=== PATIENT | female | born 1945 | race Caucasian/White ===

== ENCOUNTER 2020-02-16 14:54 | Emergency (ER) | payer BC, MEDICAID ==
[~2020-02-16] VITALS: Ht 162.6 cm; Wt 100.0 kg
[~2020-02-16 14:54] MED LIST: FENO134C PO; INSU300I SQ; LOSA1TAB15 PO; METF-436 PO; NORCO10T PO; ROSU10TA2 PO
[2020-02-16 16:19] LABS: BASOPHILS % (AUTO) 0.4 % (0-1); EOSINOPHILS % (AUTO) 0 % (0-6); HEMOGLOBIN 13.4 g/dl (12.0-16.0); LYMPHOCYTES # (AUTO) 0.9 X10'3 (1.1-4.8); LYMPHOCYTES % (AUTO) 27.6 % (21-51); MEAN CORPUSCULAR HEMOGLOBIN 30.4 PG (27.0-31.0); MEAN CORPUSCULAR HGB CONC 33.5 g/dL (33.0-36.5); MEAN CORPUSCULAR VOLUME 90.8 FL (78-98); MEAN PLATELET VOLUME 8.1 FL (7.4-10.4); MONOCYTES # (AUTO) 0.3 X10'3 (0-0.9); MONOCYTES % (AUTO) 9.6 % (2-12); NEUTROPHILS % (AUTO) 62.4 % (42-75); PLATELET COUNT 170 X10'3 (140-440); RED BLOOD COUNT 4.41 X10'6 (4.20-5.60); RED CELL DISTRIBUTION WIDTH 13.6 % (11.5-14.5); WHITE BLOOD COUNT 3.2 X10'3 (4.5-11.0)
[2020-02-16 16:33] LABS: CLARITY,URINE CLOUDY (Clear); COLOR,URINE YELLOW (Yellow); GLUCOSE, URINE >=1000 mg/dl (Neg); KETONES,URINE TRACE mg/dl (Neg); LEUKOCYTE ESTERASE ,URINE SMALL (Neg); NITRITES, URINE POSITIVE (Neg); OCCULT BLOOD,URINE LARGE (Neg); PH,URINE 5.5 (4.8-8.0); PROTEIN,URINE 100 mg/dl (Neg)
[2020-02-16 16:39] LABS: UA COLLECTION TYPE URINAL
[2020-02-16] MEDS ORDERED: CefTRIAXone/D5W-Rocephin 1gm 50 ML IV ONE (16:40)
[2020-02-16] MEDS ORDERED: azithromycin/NS 500mg/250ml 250 ML IV ONE (16:40)
[2020-02-16 16:41] LABS: ALANINE AMINOTRANSFERASE 22 U/L (12-78); ALBUMIN 3.1 G/DL (3.4-5.0); ALBUMIN/GLOBULIN RATIO 0.7 (1.1-1.5); ALKALINE PHOSPHATASE 81 IU/L (46-116); ANION GAP 8 (8-16); ASPARTATE AMINO TRANSFERASE 35 U/L (10-37); BILIRUBIN,TOTAL 0.5 MG/DL (0.1-1.0); BLOOD UREA NITROGEN 30 MG/DL (7-18); BUN/CREATININE RATIO 21.1 (6.6-38.0); C-REACTIVE PROTEIN 3.31 MG/DL (0.0-0.5); CALCIUM 8.2 MG/DL (8.5-10.1); CHLORIDE 102 MMOL/L (99-107); CREATININE 1.42 MG/DL (0.40-0.90); GLUCOSE 157 MG/DL (70-104); LACTATE DEHYDROGENASE 228 U/L (81-234); MAGNESIUM 2.2 MG/DL (1.5-2.4); POTASSIUM 3.8 MMOL/L (3.5-5.1); SODIUM 137 MMOL/L (135-145); TOTAL CARBON DIOXIDE 26.7 MMOL/L (24-32); TOTAL PROTEIN 7.7 G/DL (6.4-8.2); eGFR 36 ML/MIN
[2020-02-16 16:48] LABS: BACTERIA,URINE 4+ /HPF (Neg); MUCUS STRANDS FEW /LPF (Neg); RBC,URINE 20-50 /HPF (0-2); SQUAMOUS EPITHELIAL CELL,UR MANY /LPF (FEW); WBC,URINE 50-100 /HPF (0-4)
[2020-02-16] MEDS ORDERED: normal saline 1000ml 1,000 ML IV ONE (17:10)
[2020-02-16] MEDS ORDERED: AZIT-63 PO (17:23)
[2020-02-16] MEDS ORDERED: CEPH250T PO (17:23)
[2020-02-16 20:02] VITALS: BP 143/78
== END 2020-02-16 20:27 | disposition home or self-care (01) ==
LOC: ER 14:55
DX: U07.1 COVID-19 (principal); J12.89 Other viral pneumonia; N39.0 Urinary tract infection, site not specified; E78.00 Pure hypercholesterolemia, unspecified; I10 Essential (primary) hypertension; J44.9 Chronic obstructive pulmonary disease, unspecified; G47.30 Sleep apnea, unspecified; E11.9 Type 2 diabetes mellitus without complications; F32.9 Major depressive disorder, single episode, unspecified; K21.9 Gastro-esophageal reflux disease without esophagitis; Z87.448 Personal history of other diseases of urinary system; Z88.8 Allergy status to other drugs, medicaments and biological substances; Z56.0 Unemployment, unspecified
CPT/HCPCS: 36415; 71045; 80053; 81001; 83605; 83615; 83735; 84145; 85025; 86140; 87040; 87081; 87635; 87880; 93005; 96365; 96367; 99285; J0456; J0696; J7030

== ENCOUNTER 2020-05-05 17:12 | Emergency (ER) | payer BC, MEDICAID ==
[~2020-05-05] VITALS: Ht 162.6 cm; Wt 97.3 kg
--- NOTE | 2020-05-05 17:16 | NUR ---
Pt's son Javier is her ride home. His number is [phone].
[2020-05-05 18:17] LABS: BASOPHILS # (AUTO) 0.1 X10'3 (0-0.2); EOSINOPHILS # (AUTO) 0.3 X10'3 (0-0.9); EOSINOPHILS % (AUTO) 4.9 % (0-6); HEMATOCRIT 37.5 % (35.0-45.0); HEMOGLOBIN 12.1 g/dl (12.0-16.0); LYMPHOCYTES # (AUTO) 2.4 X10'3 (1.1-4.8); LYMPHOCYTES % (AUTO) 39.5 % (21-51); MEAN CORPUSCULAR HEMOGLOBIN 29.6 PG (27.0-31.0); MEAN CORPUSCULAR HGB CONC 32.3 g/dL (33.0-36.5); MEAN CORPUSCULAR VOLUME 91.5 FL (78-98); MEAN PLATELET VOLUME 7.5 FL (7.4-10.4); MONOCYTES # (AUTO) 0.4 X10'3 (0-0.9); MONOCYTES % (AUTO) 7.3 % (2-12); NEUTROPHILS # (AUTO) 2.9 X10'3 (1.8-7.7); NEUTROPHILS % (AUTO) 47.3 % (42-75); PLATELET COUNT 257 X10'3 (140-440); RED CELL DISTRIBUTION WIDTH 16.4 % (11.5-14.5); WHITE BLOOD COUNT 6.1 X10'3 (4.5-11.0)
[2020-05-05 18:22] LABS: D-DIMER 1.25 MG/L FEU (0-0.50)
[2020-05-05 18:47] VITALS: BP 164/90
[2020-05-05 18:47] LABS: ALANINE AMINOTRANSFERASE 11 U/L (12-78); ALBUMIN 2.8 G/DL (3.4-5.0); ALBUMIN/GLOBULIN RATIO 0.7 (1.1-1.5); ALKALINE PHOSPHATASE 65 IU/L (46-116); ANION GAP 7 (8-16); ASPARTATE AMINO TRANSFERASE 17 U/L (10-37); BILIRUBIN,TOTAL 0.3 MG/DL (0.1-1.0); BLOOD UREA NITROGEN 14 MG/DL (7-18); CALCIUM 8.7 MG/DL (8.5-10.1); CHLORIDE 110 MMOL/L (99-107); GLUCOSE 126 MG/DL (70-104); POTASSIUM 3.7 MMOL/L (3.5-5.1); SODIUM 143 MMOL/L (135-145); TOTAL CARBON DIOXIDE 25.9 MMOL/L (24-32); TOTAL PROTEIN 6.7 G/DL (6.4-8.2); eGFR 54 ML/MIN
[2020-05-05] MEDS ORDERED: POTA10TA19 PO (19:06)
[2020-05-05] MEDS ORDERED: FURO-150 PO (19:06)
[2020-05-05] MEDS ORDERED: CEPH250T PO (19:06)
== END 2020-05-05 19:30 | disposition home or self-care (01) ==
LOC: ER 17:13
DX: L03.116 Cellulitis of left lower limb (principal); L03.115 Cellulitis of right lower limb; R60.0 Localized edema; R06.02 Shortness of breath; E78.00 Pure hypercholesterolemia, unspecified; I10 Essential (primary) hypertension; J44.9 Chronic obstructive pulmonary disease, unspecified; K21.9 Gastro-esophageal reflux disease without esophagitis; E11.9 Type 2 diabetes mellitus without complications; M19.90 Unspecified osteoarthritis, unspecified site; F32.9 Major depressive disorder, single episode, unspecified; Z87.01 Personal history of pneumonia (recurrent); Z87.442 Personal history of urinary calculi; Z87.440 Personal history of urinary (tract) infections; Z90.710 Acquired absence of both cervix and uterus; Z98.890 Other specified postprocedural states; Z60.2 Problems related to living alone; Z56.0 Unemployment, unspecified; Z88.8 Allergy status to other drugs, medicaments and biological substances; Z79.2 Long term (current) use of antibiotics; Z79.899 Other long term (current) drug therapy
CPT/HCPCS: 36415; 71045; 80053; 83880; 84484; 85025; 85379; 93005; 93970; 99285

== ENCOUNTER 2021-08-13 10:38 | Emergency (ER) | payer BC, MEDICAID ==
[~2021-08-13] VITALS: Ht 162.6 cm; Wt 98.2 kg
[~2021-08-13 10:38] MED LIST changes: -FENO134C PO; +FENO134C21 PO; +FURO-150 PO
[2021-08-13 11:07] VITALS: BP 144/97
[2021-08-13 13:22] LABS: COLOR,URINE YELLOW (Yellow); GLUCOSE, URINE NEGATIVE (Neg); KETONES,URINE NEGATIVE (Neg); LEUKOCYTE ESTERASE ,URINE TRACE (Neg); NITRITES, URINE POSITIVE (Neg); OCCULT BLOOD,URINE LARGE (Neg); PH,URINE 5.5 (4.8-8.0); PROTEIN,URINE 30 mg/dl (Neg); UROBILINOGEN,URINE 0.2 E.U/dL (0.2-1.0)
[2021-08-13 13:23] LABS: CLARITY,URINE CLOUDY (Clear); UA COLLECTION TYPE STRAIGHT CATH
[2021-08-13 13:28] LABS: BACTERIA,URINE 4+ /HPF (Neg); MUCUS STRANDS NONE SEEN /LPF (Neg); SQUAMOUS EPITHELIAL CELL,UR MODERATE /LPF (FEW); WBC CLUMPS,URINE MODERATE /HPF (NEGATIVE); WBC,URINE 30-50 /HPF (0-4)
[2021-08-13] MEDS ORDERED: CEPH250T PO (13:36)
== END 2021-08-13 13:51 | disposition home or self-care (01) ==
LOC: ER 10:39
DX: N39.0 Urinary tract infection, site not specified (principal); R10.30 Lower abdominal pain, unspecified; E78.00 Pure hypercholesterolemia, unspecified; I10 Essential (primary) hypertension; J44.9 Chronic obstructive pulmonary disease, unspecified; K21.9 Gastro-esophageal reflux disease without esophagitis; E11.9 Type 2 diabetes mellitus without complications; M19.90 Unspecified osteoarthritis, unspecified site; F32.A Depression, unspecified; Z87.01 Personal history of pneumonia (recurrent); Z87.442 Personal history of urinary calculi; Z87.440 Personal history of urinary (tract) infections; Z90.710 Acquired absence of both cervix and uterus; Z98.890 Other specified postprocedural states; Z60.2 Problems related to living alone; Z56.0 Unemployment, unspecified; Z88.8 Allergy status to other drugs, medicaments and biological substances; Z79.2 Long term (current) use of antibiotics; Z79.899 Other long term (current) drug therapy
CPT/HCPCS: 81001; 87077; 87088; 87186; 99284

== ENCOUNTER 2021-12-08 18:09 | Inpatient (IN) | payer BC, MEDICAID ==
[~2021-12-08] VITALS: Ht 162.6 cm; Wt 105.0 kg
[2021-12-08 19:54] LABS: BASOPHILS # (AUTO) 0.1 X10'3 (0-0.2); BASOPHILS % (AUTO) 0.7 % (0-1); EOSINOPHILS # (AUTO) 0.2 X10'3 (0-0.9); HEMATOCRIT 39.8 % (35.0-45.0); HEMOGLOBIN 13.3 g/dl (12.0-16.0); LYMPHOCYTES # (AUTO) 1.8 X10'3 (1.1-4.8); MEAN CORPUSCULAR HEMOGLOBIN 30.2 PG (27.0-31.0); MEAN CORPUSCULAR HGB CONC 33.3 g/dL (33.0-36.5); MEAN CORPUSCULAR VOLUME 90.7 FL (78-98); MEAN PLATELET VOLUME 7.8 FL (7.4-10.4); MONOCYTES # (AUTO) 0.3 X10'3 (0-0.9); MONOCYTES % (AUTO) 4.6 % (2-12); NEUTROPHILS # (AUTO) 5.2 X10'3 (1.8-7.7); NEUTROPHILS % (AUTO) 68.7 % (42-75); PLATELET COUNT 243 X10'3 (140-440); RED BLOOD COUNT 4.38 X10'6 (4.20-5.60); RED CELL DISTRIBUTION WIDTH 13.5 % (11.5-14.5); WHITE BLOOD COUNT 7.5 X10'3 (4.5-11.0)
[2021-12-08 20:05] LABS: ALANINE AMINOTRANSFERASE 14 U/L (12-78); ALBUMIN 3.3 G/DL (3.4-5.0); ALBUMIN/GLOBULIN RATIO 0.8 (1.1-1.5); ALKALINE PHOSPHATASE 81 IU/L (46-116); ANION GAP 11 (8-16); ASPARTATE AMINO TRANSFERASE 10 U/L (10-37); BILIRUBIN,TOTAL 0.2 MG/DL (0.1-1.0); BLOOD UREA NITROGEN 22 MG/DL (7-18); BUN/CREATININE RATIO 12.6 (6.6-38.0); CHLORIDE 106 MMOL/L (99-107); CREATININE 1.75 MG/DL (0.40-0.90); GLUCOSE 166 MG/DL (70-104); POTASSIUM 3.8 MMOL/L (3.5-5.1); SODIUM 144 MMOL/L (135-145); TOTAL CARBON DIOXIDE 27.1 MMOL/L (24-32); TOTAL PROTEIN 7.4 G/DL (6.4-8.2); eGFR 28 ML/MIN
[2021-12-08] MEDS ORDERED: normal saline 1000ML IV soln IVB ONE (20:20)
[2021-12-08] MEDS ORDERED: ondansetron/PF 4mg/2ml inj IV ONE (20:20)
[2021-12-08 21:27] LABS: CLARITY,URINE CLOUDY (Clear); COLOR,URINE YELLOW (Yellow); GLUCOSE, URINE NEGATIVE (Neg); KETONES,URINE NEGATIVE (Neg); LEUKOCYTE ESTERASE ,URINE SMALL (Neg); NITRITES, URINE POSITIVE (Neg); OCCULT BLOOD,URINE SMALL (Neg); PROTEIN,URINE 30 mg/dl (Neg); UROBILINOGEN,URINE 0.2 E.U/dL (0.2-1.0)
[2021-12-08 21:29] LABS: UA COLLECTION TYPE STRAIGHT CATH
[2021-12-08 21:34] LABS: BACTERIA,URINE 4+ /HPF (Neg); SQUAMOUS EPITHELIAL CELL,UR FEW /LPF (FEW); WBC,URINE 30-50 /HPF (0-4)
[2021-12-08 21:35] LABS: WBC CLUMPS,URINE MODERATE /HPF (NEGATIVE)
[2021-12-08] MEDS ORDERED: HYDROcodone/acetaminophen 10/325mg tab PO PRN (22:05)
[2021-12-08] MEDS ORDERED: acetaminophen 325mg tablet PO PRN (22:05)
[2021-12-08] MEDS ORDERED: magnesium hydroxide 30ml (MOM) UD suspension PO PRN (22:05)
[2021-12-08] MEDS ORDERED: ondansetron/PF 4mg/2ml inj IV PRN (22:05)
[2021-12-08] MEDS ORDERED: magnesium 4gm in 100ml NS 100 ML IV PRN (22:05)
[2021-12-08] MEDS ORDERED: magnesium Cl slow-release 64mg tablet PO PRN (22:05)
[2021-12-08] MEDS ORDERED: magnesium 2GM in 50ml NS 50 ML IV PRN (22:05)
[2021-12-08] MEDS ORDERED: POTASSIUM BICARB 20meq eff tab 20 MEQ TABLET.EFF PO PRN ×2 (22:05)
[2021-12-08] MEDS ORDERED: potassium CL 10mEq/100ml bag 100 ML IV PRN (22:05)
[2021-12-08] MEDS ORDERED: mag hydrox/Alum hydrox/simeth 30ml oral suspension PO PRN (22:05)
[2021-12-08 22:58] LABS: MAGNESIUM 2.1 MG/DL (1.5-2.4); POTASSIUM 3.7 MMOL/L (3.5-5.1)
[2021-12-08] MEDS: ciprofloxacin lact 400MG/200ML 200 ML IV SCH (23:09)
[2021-12-08] MEDS: dextrose 5%-1/2 normal saline 1,000 ML IV SCH (23:09)
--- NOTE | 2021-12-08 23:16 | NUR ---
Alexa Gage (caregiver) [phone]
--- NOTE | 2021-12-08 23:30 | NUR ---
Patient in room ORTHO 4012. I have received report from MERY Suarez and had the opportunity to ask questions and assume patient care.
[2021-12-09 00:10] VITALS: BP 211/88
--- NOTE | 2021-12-09 00:10 | NUR ---
pt arrived to floor on [facility]. ambulated from [facility] in hallway to B bed in room. using bedside commode. settled into bed. routines explained. skin check performed by 2 RN. call light in reach. pt resting and comfortable.
[2021-12-09] MEDS ORDERED: insulin Lispro (HumaLOG) vial - multi-dose SQ SCH (00:30)
[2021-12-09] MEDS ORDERED: dextrose 50%-water 50ml dispensing syringe IV PRN ×2 (00:30)
[2021-12-09] MEDS ORDERED: DEXTROSE 15 GM of carb/4 tabs (each vial/BOTTLE has 4 tablets) PO PRN ×2 (00:30)
[2021-12-09] MEDS ORDERED: glucagon, human recombinant 1mg kit SUBCUT PRN (00:30)
[2021-12-09] MEDS ORDERED: MESSAGE TO PHARMACY PO ONE (00:30)
[2021-12-09 02:00] VITALS: BP 159/77
[2021-12-09] MEDS: HYDROcodone/acetaminophen 5mg/325mg tablet PO PRN ×3 (03:18→22:08)
[2021-12-09 06:00] VITALS: BP 128/67
[2021-12-09 06:11] LABS: BASOPHILS # (AUTO) 0.1 X10'3 (0-0.2); BASOPHILS % (AUTO) 0.7 % (0-1); EOSINOPHILS # (AUTO) 0.2 X10'3 (0-0.9); EOSINOPHILS % (AUTO) 2.8 % (0-6); HEMATOCRIT 36.7 % (35.0-45.0); HEMOGLOBIN 12.3 g/dl (12.0-16.0); LYMPHOCYTES # (AUTO) 2.4 X10'3 (1.1-4.8); LYMPHOCYTES % (AUTO) 31.9 % (21-51); MEAN CORPUSCULAR HEMOGLOBIN 30.7 PG (27.0-31.0); MEAN CORPUSCULAR HGB CONC 33.6 g/dL (33.0-36.5); MEAN CORPUSCULAR VOLUME 91.6 FL (78-98); MEAN PLATELET VOLUME 7.4 FL (7.4-10.4); MONOCYTES # (AUTO) 0.5 X10'3 (0-0.9); MONOCYTES % (AUTO) 6.6 % (2-12); NEUTROPHILS # (AUTO) 4.3 X10'3 (1.8-7.7); PLATELET COUNT 209 X10'3 (140-440); RED BLOOD COUNT 4.01 X10'6 (4.20-5.60); RED CELL DISTRIBUTION WIDTH 13.3 % (11.5-14.5); WHITE BLOOD COUNT 7.5 X10'3 (4.5-11.0)
[2021-12-09 06:27] LABS: ALANINE AMINOTRANSFERASE 11 U/L (12-78); ALBUMIN 2.8 G/DL (3.4-5.0); ALBUMIN/GLOBULIN RATIO 0.8 (1.1-1.5); ALKALINE PHOSPHATASE 67 IU/L (46-116); ANION GAP 4 (8-16); ASPARTATE AMINO TRANSFERASE 12 U/L (10-37); BILIRUBIN,TOTAL 0.3 MG/DL (0.1-1.0); BLOOD UREA NITROGEN 18 MG/DL (7-18); BUN/CREATININE RATIO 12.5 (6.6-38.0); CALCIUM 8.4 MG/DL (8.5-10.1); CHLORIDE 108 MMOL/L (99-107); CREATININE 1.44 MG/DL (0.40-0.90); GLUCOSE 141 MG/DL (70-104); POTASSIUM 3.6 MMOL/L (3.5-5.1); SODIUM 143 MMOL/L (135-145); TOTAL CARBON DIOXIDE 30.8 MMOL/L (24-32); TOTAL PROTEIN 6.5 G/DL (6.4-8.2); eGFR 35 ML/MIN
[2021-12-09 06:35] LABS: HEMOGLOBIN A1C 6.2 % (4.5-6.2)
--- NOTE | 2021-12-09 06:37 | NUR ---
Problems reprioritized. Patient report given, questions answered & plan of care reviewed with MERY Blount.
[2021-12-09] MEDS: K and/or MAG REPLACEMENT MC SCH ×2 (08:00→19:40)
[2021-12-09] MEDS: ciprofloxacin lact 400MG/200ML 200 ML IV SCH ×2 (09:22→20:54)
[2021-12-09] MEDS: docusate sod 100mg capsule PO SCH ×2 (09:22→20:00)
[2021-12-09] MEDS: nystatin 15 GM powder TP SCH ×3 (09:23→20:56)
[2021-12-09] MEDS: heparin, porcine 5000 units/ml vial SQ SCH ×2 (09:23→20:54)
[2021-12-09] MEDS: dextrose 5%-1/2 normal saline 1,000 ML IV SCH ×2 (09:40→20:54)
[2021-12-09 10:00] VITALS: BP 102/66
[2021-12-09] MEDS ORDERED: ESCI5TAB17 PO (15:07)
[2021-12-09] MEDS ORDERED: SOLI10TA7 PO (15:07)
[2021-12-09] MEDS ORDERED: GABA300C PO (15:08)
[2021-12-09] MEDS ORDERED: ASPI-1265 PO (15:09)
[2021-12-09] MEDS ORDERED: LOSA100T57 PO (15:10)
[2021-12-09] MEDS ORDERED: SENN-263 PO (15:11)
[2021-12-09] MEDS ORDERED: HYDR25TA4 PO (15:11)
[2021-12-09 18:00] VITALS: BP 129/47
[2021-12-09] MEDS: insulin glargine (Lantus) pen - multi-dose SQ SCH (20:58)
[2021-12-09 22:00] VITALS: BP 136/69
[2021-12-10] MEDS ORDERED: hydrALAZINE 20mg/ml inj. IV PRN (05:30)
[2021-12-10 05:41] VITALS: BP 198/83
[2021-12-10 06:00] VITALS: BP 207/77
--- NOTE | 2021-12-10 06:20 | NUR ---
Patient in room ORTHO 4012. I have received report from Lore and had the opportunity to ask questions and assume patient care.
--- NOTE | 2021-12-10 06:22 | NUR ---
Report given to Mayuri ORDONEZ.
[2021-12-10 07:29] LABS: BASOPHILS # (AUTO) 0.1 X10'3 (0-0.2); BASOPHILS % (AUTO) 0.7 % (0-1); EOSINOPHILS # (AUTO) 0.2 X10'3 (0-0.9); EOSINOPHILS % (AUTO) 2.8 % (0-6); HEMATOCRIT 38.8 % (35.0-45.0); HEMOGLOBIN 12.7 g/dl (12.0-16.0); LYMPHOCYTES # (AUTO) 1.8 X10'3 (1.1-4.8); LYMPHOCYTES % (AUTO) 26.3 % (21-51); MEAN CORPUSCULAR HGB CONC 32.7 g/dL (33.0-36.5); MEAN CORPUSCULAR VOLUME 91.6 FL (78-98); MEAN PLATELET VOLUME 7.8 FL (7.4-10.4); MONOCYTES # (AUTO) 0.4 X10'3 (0-0.9); MONOCYTES % (AUTO) 6.6 % (2-12); NEUTROPHILS # (AUTO) 4.3 X10'3 (1.8-7.7); NEUTROPHILS % (AUTO) 63.6 % (42-75); PLATELET COUNT 189 X10'3 (140-440); RED BLOOD COUNT 4.24 X10'6 (4.20-5.60); RED CELL DISTRIBUTION WIDTH 13.5 % (11.5-14.5); WHITE BLOOD COUNT 6.8 X10'3 (4.5-11.0)
[2021-12-10 07:42] LABS: ALBUMIN 2.9 G/DL (3.4-5.0); ANION GAP 10 (8-16); BILIRUBIN,TOTAL 0.3 MG/DL (0.1-1.0); BLOOD UREA NITROGEN 14 MG/DL (7-18); BUN/CREATININE RATIO 12.6 (6.6-38.0); CALCIUM 8.6 MG/DL (8.5-10.1); CHLORIDE 105 MMOL/L (99-107); CREATININE 1.11 MG/DL (0.40-0.90); GLUCOSE 172 MG/DL (70-104); MAGNESIUM 1.9 MG/DL (1.5-2.4); POTASSIUM 3.9 MMOL/L (3.5-5.1); SODIUM 140 MMOL/L (135-145); TOTAL CARBON DIOXIDE 24.8 MMOL/L (24-32); TOTAL PROTEIN 6.5 G/DL (6.4-8.2); eGFR 48 ML/MIN
[2021-12-10 07:43] LABS: ALANINE AMINOTRANSFERASE 9 U/L (12-78); ALBUMIN/GLOBULIN RATIO 0.8 (1.1-1.5); ALKALINE PHOSPHATASE 70 IU/L (46-116); ASPARTATE AMINO TRANSFERASE 13 U/L (10-37)
[2021-12-10] MEDS: K and/or MAG REPLACEMENT MC SCH ×2 (08:00→20:00)
[2021-12-10 10:00] VITALS: BP 172/63
[2021-12-10] MEDS: ciprofloxacin lact 400MG/200ML 200 ML IV SCH ×2 (10:43→19:54)
[2021-12-10] MEDS: docusate sod 100mg capsule PO SCH ×2 (10:50→19:54)
[2021-12-10] MEDS: nystatin 15 GM powder TP SCH ×3 (10:50→20:01)
[2021-12-10] MEDS: heparin, porcine 5000 units/ml vial SQ SCH ×2 (10:50→19:55)
[2021-12-10] MEDS: HYDROcodone/acetaminophen 5mg/325mg tablet PO PRN (11:23)
[2021-12-10] MEDS: dextrose 5%-1/2 normal saline 1,000 ML IV SCH ×2 (14:05→14:17)
[2021-12-10] MEDS ORDERED: PERFLUTREN PROTEIN-A MICROSPHR (Optison) 0.22 MG/ML 3ML VIAL IV ONE (17:15)
[2021-12-10] MEDS ORDERED: gabapentin 300mg capsule PO PRN (17:20)
[2021-12-10] MEDS ORDERED: amLODIPine 5mg tablet PO SCH (17:20)
[2021-12-10 18:00] VITALS: BP 154/63
--- NOTE | 2021-12-10 18:16 | NUR ---
Problems reprioritized. Patient report given, questions answered & plan of care reviewed with Jessica.
[2021-12-10] MEDS: oxybutynin 5mg tablet PO SCH (19:54)
[2021-12-10] MEDS: insulin glargine (Lantus) pen - multi-dose SQ SCH (20:05)
[2021-12-10 22:00] VITALS: BP 145/61
[2021-12-11] MEDS: dextrose 5%-1/2 normal saline 1,000 ML IV SCH (03:17)
[2021-12-11 06:00] VITALS: BP 209/53
--- NOTE | 2021-12-11 06:20 | NUR ---
Problems reprioritized. Patient report given, questions answered & plan of care reviewed with Mayuri ORDONEZ. Addendum: 12/11/21 at 0621 by Jessica Tolbert RN Amended: Links added.
--- NOTE | 2021-12-11 06:46 | NUR ---
Patient in room ORTHO 4012. I have received report from [employer] and had the opportunity to ask questions and assume patient care.
[2021-12-11 07:15] LABS: ALANINE AMINOTRANSFERASE 13 U/L (12-78); ALBUMIN 2.9 G/DL (3.4-5.0); ALBUMIN/GLOBULIN RATIO 0.8 (1.1-1.5); ALKALINE PHOSPHATASE 72 IU/L (46-116); ANION GAP 11 (8-16); ASPARTATE AMINO TRANSFERASE 14 U/L (10-37); BILIRUBIN,TOTAL 0.3 MG/DL (0.1-1.0); BLOOD UREA NITROGEN 10 MG/DL (7-18); BUN/CREATININE RATIO 8.1 (6.6-38.0); CALCIUM 9.1 MG/DL (8.5-10.1); CHLORIDE 106 MMOL/L (99-107); CREATININE 1.23 MG/DL (0.40-0.90); GLUCOSE 154 MG/DL (70-104); MAGNESIUM 1.8 MG/DL (1.5-2.4); POTASSIUM 3.9 MMOL/L (3.5-5.1); SODIUM 144 MMOL/L (135-145); TOTAL CARBON DIOXIDE 27.2 MMOL/L (24-32); TOTAL PROTEIN 6.6 G/DL (6.4-8.2); eGFR 42 ML/MIN
[2021-12-11 07:30] VITALS: BP 177/66
[2021-12-11] MEDS: K and/or MAG REPLACEMENT MC SCH (07:59)
[2021-12-11] MEDS ORDERED: ESCITALOPRAM OXALATE 5 MG TABLET PO SCH (08:00)
[2021-12-11] MEDS ORDERED: losartan 50mg tablet PO SCH (08:00)
[2021-12-11] MEDS ORDERED: HYDROchlorothiazide 25mg tablet PO SCH (08:00)
[2021-12-11] MEDS ORDERED: sennosides 8.6mg tablet PO SCH (08:00)
[2021-12-11] MEDS ORDERED: aspirin 81mg tab.chew PO SCH (08:00)
[2021-12-11] MEDS: ciprofloxacin lact 400MG/200ML 200 ML IV SCH (08:04)
[2021-12-11] MEDS: docusate sod 100mg capsule PO SCH (08:04)
[2021-12-11] MEDS: oxybutynin 5mg tablet PO SCH (08:05)
[2021-12-11] MEDS: heparin, porcine 5000 units/ml vial SQ SCH (08:06)
[2021-12-11] MEDS: nystatin 15 GM powder TP SCH (08:13)
[2021-12-11 08:38] LABS: BASOPHILS % (AUTO) 0.7 % (0-1); EOSINOPHILS # (AUTO) 0.2 X10'3 (0-0.9); EOSINOPHILS % (AUTO) 2.8 % (0-6); HEMATOCRIT 38.3 % (35.0-45.0); HEMOGLOBIN 12.5 g/dl (12.0-16.0); LYMPHOCYTES # (AUTO) 1.8 X10'3 (1.1-4.8); LYMPHOCYTES % (AUTO) 29.2 % (21-51); MEAN CORPUSCULAR HEMOGLOBIN 29.8 PG (27.0-31.0); MEAN CORPUSCULAR HGB CONC 32.7 g/dL (33.0-36.5); MEAN CORPUSCULAR VOLUME 91.2 FL (78-98); MEAN PLATELET VOLUME 7.8 FL (7.4-10.4); MONOCYTES # (AUTO) 0.4 X10'3 (0-0.9); NEUTROPHILS # (AUTO) 3.7 X10'3 (1.8-7.7); NEUTROPHILS % (AUTO) 60.3 % (42-75); PLATELET COUNT 196 X10'3 (140-440); RED CELL DISTRIBUTION WIDTH 13.7 % (11.5-14.5); WHITE BLOOD COUNT 6.2 X10'3 (4.5-11.0)
[2021-12-11] MEDS ORDERED: SULF1TAB49 PO (09:58)
[2021-12-11 10:00] VITALS: BP 136/90
--- NOTE | 2021-12-11 12:58 | NUR ---
Reviewed discharge instructions with pt. Pt verbalized understanding. Pt dressed herself and was picked up by her friend who will take he to the pharmacy and home. Pt is excited to get home.
== END 2021-12-11 13:05 | disposition home health service (06) | DRG 682 ==
LOC: ER 18:10 → ED HOLD 22:07 → ORTHO 4S 23:58
PROVIDERS: ADMIT Internal Medicine; ATTEND Internal Medicine
DX: N17.0 Acute kidney failure with tubular necrosis (principal); G93.41 Metabolic encephalopathy; N39.0 Urinary tract infection, site not specified; E86.0 Dehydration; E78.00 Pure hypercholesterolemia, unspecified; M19.90 Unspecified osteoarthritis, unspecified site; F32.A Depression, unspecified; G47.30 Sleep apnea, unspecified; Z60.2 Problems related to living alone; K21.9 Gastro-esophageal reflux disease without esophagitis; E11.22 Type 2 diabetes mellitus with diabetic chronic kidney disease; B96.1 Klebsiella pneumoniae [K. pneumoniae] as the cause of diseases classified elsewhere; I12.9 Hypertensive chronic kidney disease with stage 1 through stage 4 chronic kidney disease, or unspecified chronic kidney disease; N18.9 Chronic kidney disease, unspecified; R35.89 Other polyuria; E66.01 Morbid (severe) obesity due to excess calories; I27.20 Pulmonary hypertension, unspecified; J44.9 Chronic obstructive pulmonary disease, unspecified; R32 Unspecified urinary incontinence; Z87.442 Personal history of urinary calculi; Z90.710 Acquired absence of both cervix and uterus; Z68.39 Body mass index [BMI] 39.0-39.9, adult; Z88.8 Allergy status to other drugs, medicaments and biological substances; Z79.899 Other long term (current) drug therapy; Z98.51 Tubal ligation status
CPT/HCPCS: 36415; 70450; 71045; 80053; 81001; 82948; 83036; 83735; 83880; 84132; 84484; 85025; 87077; 87081; 87088; 87186; 93005; 93306; 96361; 96374; 99285; A4353; A6258; A6446; G0378; J0360; J0744; J1644; J1815; J2405; J3490; J7030; J7040; J7042

== ENCOUNTER 2022-01-28 11:01 | Emergency (ER) | payer BC, MEDICAID ==
[~2022-01-28] VITALS: Ht 162.6 cm; Wt 92.3 kg
[~2022-01-28 11:01] MED LIST changes: +ASPI-1265 PO; +ESCI5TAB17 PO; -FENO134C21 PO; -FURO-150 PO; +GABA300C PO; +HYDR25TA4 PO; +LOSA100T57 PO; -LOSA1TAB15 PO; -METF-436 PO; -NORCO10T PO; -ROSU10TA2 PO; +SENN-263 PO; +SOLI10TA7 PO
[2022-01-28] MEDS ORDERED: LIDOcaine 1% 30ml preserv. free vial IJ ONE (13:50)
[2022-01-28] MEDS ORDERED: TETanus/Pertussis (Acell)/Diphther VAC/PF (Tdap-Adult) 0.5ml syringe IMVAC ONE (13:50)
[2022-01-28 14:42] LABS: BASOPHILS # (AUTO) 0.1 X10'3 (0-0.2); EOSINOPHILS # (AUTO) 0.2 X10'3 (0-0.9); HEMATOCRIT 41.9 % (35.0-45.0); HEMOGLOBIN 13.5 g/dl (12.0-16.0); LYMPHOCYTES # (AUTO) 3.2 X10'3 (1.1-4.8); LYMPHOCYTES % (AUTO) 30.2 % (21-51); MEAN CORPUSCULAR HEMOGLOBIN 30.3 PG (27.0-31.0); MEAN CORPUSCULAR HGB CONC 32.4 g/dL (33.0-36.5); MEAN CORPUSCULAR VOLUME 93.7 FL (78-98); MEAN PLATELET VOLUME 7.7 FL (7.4-10.4); MONOCYTES # (AUTO) 0.6 X10'3 (0-0.9); MONOCYTES % (AUTO) 5.3 % (2-12); NEUTROPHILS # (AUTO) 6.5 X10'3 (1.8-7.7); NEUTROPHILS % (AUTO) 61.5 % (42-75); PLATELET COUNT 232 X10'3 (140-440); RED BLOOD COUNT 4.47 X10'6 (4.20-5.60); RED CELL DISTRIBUTION WIDTH 14.1 % (11.5-14.5); WHITE BLOOD COUNT 10.5 X10'3 (4.5-11.0)
[2022-01-28 14:48] LABS: CLARITY,URINE SLIGHTLY CLOUDY (Clear); COLOR,URINE YELLOW (Yellow); GLUCOSE, URINE NEGATIVE (Neg); KETONES,URINE NEGATIVE (Neg); LEUKOCYTE ESTERASE ,URINE SMALL (Neg); NITRITES, URINE NEGATIVE (Neg); OCCULT BLOOD,URINE TRACE-INTACT (Neg); PH,URINE 5.5 (4.8-8.0); PROTEIN,URINE TRACE mg/dl (Neg); UROBILINOGEN,URINE 0.2 E.U/dL (0.2-1.0)
[2022-01-28] MEDS ORDERED: HYDROcodone/acetaminophen 10/325mg tab PO ONE (14:50)
[2022-01-28 14:51] LABS: UA COLLECTION TYPE CLN CATCH MIDSTREAM
[2022-01-28] MEDS ORDERED: HYDR-3965 PO (14:52)
[2022-01-28 14:57] LABS: ALANINE AMINOTRANSFERASE 13 U/L (12-78); ALBUMIN 3.2 G/DL (3.4-5.0); ALBUMIN/GLOBULIN RATIO 0.8 (1.1-1.5); ALKALINE PHOSPHATASE 68 IU/L (46-116); ANION GAP 12 (8-16); ASPARTATE AMINO TRANSFERASE 25 U/L (10-37); BILIRUBIN,TOTAL 0.4 MG/DL (0.1-1.0); BLOOD UREA NITROGEN 23 MG/DL (7-18); BUN/CREATININE RATIO 20.4 (6.6-38.0); CALCIUM 9.5 MG/DL (8.5-10.1); CHLORIDE 105 MMOL/L (99-107); CREATININE 1.13 MG/DL (0.40-0.90); GLUCOSE 87 MG/DL (70-104); SODIUM 139 MMOL/L (135-145); TOTAL CARBON DIOXIDE 21.7 MMOL/L (24-32); TOTAL PROTEIN 7.2 G/DL (6.4-8.2); eGFR 46 ML/MIN
[2022-01-28 14:57] LABS: BACTERIA,URINE 4+ /HPF (Neg); MUCUS STRANDS NONE SEEN /LPF (Neg); SQUAMOUS EPITHELIAL CELL,UR MODERATE /LPF (FEW); TRANSITIONAL EPI CELLS,URINE FEW /HPF; WBC,URINE 50-100 /HPF (0-4)
[2022-01-28] MEDS ORDERED: AMOX-117 PO (15:20)
[2022-01-28 15:47] VITALS: BP 145/81
== END 2022-01-28 16:02 | disposition home or self-care (01) ==
LOC: ER 11:02
DX: S01.111A Laceration without foreign body of right eyelid and periocular area, initial encounter (principal); N39.0 Urinary tract infection, site not specified; E78.00 Pure hypercholesterolemia, unspecified; I10 Essential (primary) hypertension; J44.9 Chronic obstructive pulmonary disease, unspecified; K21.9 Gastro-esophageal reflux disease without esophagitis; E11.9 Type 2 diabetes mellitus without complications; M19.90 Unspecified osteoarthritis, unspecified site; F32.A Depression, unspecified; Z87.01 Personal history of pneumonia (recurrent); Z87.442 Personal history of urinary calculi; Z90.710 Acquired absence of both cervix and uterus; Z98.890 Other specified postprocedural states; Z60.2 Problems related to living alone; Z88.8 Allergy status to other drugs, medicaments and biological substances; Z79.2 Long term (current) use of antibiotics; Z79.4 Long term (current) use of insulin; Z79.899 Other long term (current) drug therapy; W01.0XXA Fall on same level from slipping, tripping and stumbling without subsequent striking against object, initial encounter; Y93.01 Activity, walking, marching and hiking; Y92.89 Other specified places as the place of occurrence of the external cause; Y99.8 Other external cause status
CPT/HCPCS: 12011; 36415; 70450; 72125; 73080; 80053; 81001; 85025; 87077; 87088; 87186; 90471; 90715; 99285; J3490; A6449

== ENCOUNTER 2022-07-18 10:59 | Emergency (ER) | payer BC, MEDICAID ==
[~2022-07-18] VITALS: Ht 167.6 cm; Wt 84.1 kg
[2022-07-18 11:46] LABS: BASOPHILS # (AUTO) 0.1 X10'3 (0-0.2); EOSINOPHILS # (AUTO) 0.2 X10'3 (0-0.9); MEAN CORPUSCULAR HEMOGLOBIN 30.2 PG (27.0-31.0); MONOCYTES # (AUTO) 0.3 X10'3 (0-0.9); WHITE BLOOD COUNT 5.7 X10'3 (4.5-11.0)
[2022-07-18 11:48] LABS: EOSINOPHILS % (AUTO) 4.1 % (0-6); HEMATOCRIT 42.1 % (35.0-45.0); HEMOGLOBIN 14.1 g/dl (12.0-16.0); LYMPHOCYTES # (AUTO) 2.1 X10'3 (1.1-4.8); LYMPHOCYTES % (AUTO) 36.5 % (21-51); MEAN CORPUSCULAR HGB CONC 33.4 g/dL (33.0-36.5); MEAN CORPUSCULAR VOLUME 90.4 FL (78-98); MEAN PLATELET VOLUME 7.5 FL (7.4-10.4); NEUTROPHILS % (AUTO) 52.4 % (42-75); PLATELET COUNT 218 X10'3 (140-440); RED BLOOD COUNT 4.65 X10'6 (4.20-5.60); RED CELL DISTRIBUTION WIDTH 13.4 % (11.5-14.5)
[2022-07-18 12:00] LABS: ALANINE AMINOTRANSFERASE 13 U/L (12-78); ALBUMIN 3.2 G/DL (3.4-5.0); ALBUMIN/GLOBULIN RATIO 0.8 (1.1-1.5); ALKALINE PHOSPHATASE 75 IU/L (46-116); ANION GAP 8 (8-16); ASPARTATE AMINO TRANSFERASE 13 U/L (10-37); BILIRUBIN,TOTAL 0.3 MG/DL (0.1-1.0); BLOOD UREA NITROGEN 15 MG/DL (7-18); BUN/CREATININE RATIO 10.7 (10.0-20.0); CALCIUM 9.1 MG/DL (8.5-10.1); CHLORIDE 107 MMOL/L (99-107); GLUCOSE 139 MG/DL (70-104); POTASSIUM 3.9 MMOL/L (3.5-5.1); SODIUM 143 MMOL/L (135-145); TOTAL CARBON DIOXIDE 28.5 MMOL/L (24-32); eGFR 36 ML/MIN
[2022-07-18 12:03] LABS: ETHANOL < 0.010 GM/DL (0.0-0.010)
[2022-07-18 12:37] LABS: CLARITY,URINE CLOUDY (Clear); COLOR,URINE YELLOW (Yellow); GLUCOSE, URINE NEGATIVE (Neg); KETONES,URINE NEGATIVE (Neg); LEUKOCYTE ESTERASE ,URINE SMALL (Neg); NITRITES, URINE POSITIVE (Neg); OCCULT BLOOD,URINE SMALL (Neg); PROTEIN,URINE 100 mg/dl (Neg); UROBILINOGEN,URINE 0.2 E.U/dL (0.2-1.0)
[2022-07-18 12:42] LABS: UA COLLECTION TYPE STRAIGHT CATH
[2022-07-18 12:43] LABS: BACTERIA,URINE 4+ /HPF (Neg); SQUAMOUS EPITHELIAL CELL,UR FEW /LPF (FEW); WBC CLUMPS,URINE MANY /HPF (NEGATIVE); WBC,URINE TNTC /HPF (0-4)
[2022-07-18] MEDS ORDERED: amoxicillin/clavulanate potass. 1000/62.5mg TAB.SR.12h PO STA (12:50)
[2022-07-18] MEDS ORDERED: AMOX-117 PO (12:53)
[2022-07-18 12:59] LABS: URINE AMPHETAMINE SCREEN NEGATIVE (Neg); URINE BARBITUATE SCREEN NEGATIVE (Neg); URINE BENZODIAZEPINES SCREEN NEGATIVE (Neg); URINE CANNABINOID SCREEN NEGATIVE (Neg); URINE COCAINE SCREEN NEGATIVE (Neg); URINE METHADONE SCREEN NEGATIVE (Neg); URINE OPIATE SCREEN NEGATIVE (Neg); URINE PHENCYCLIDINE SCREEN NEGATIVE (Neg)
[2022-07-18] MEDS ORDERED: amox tr/potassium clavulanate 875/125mg TAB PO STA (13:07)
[2022-07-18 13:25] VITALS: BP 178/68
== END 2022-07-18 13:37 | disposition home or self-care (01) ==
LOC: ER 10:59
DX: N39.0 Urinary tract infection, site not specified (principal); E78.00 Pure hypercholesterolemia, unspecified; I10 Essential (primary) hypertension; J44.9 Chronic obstructive pulmonary disease, unspecified; K21.9 Gastro-esophageal reflux disease without esophagitis; E11.9 Type 2 diabetes mellitus without complications; M19.90 Unspecified osteoarthritis, unspecified site; Z88.8 Allergy status to other drugs, medicaments and biological substances
CPT/HCPCS: 36415; 70450; 71045; 80053; 80305; 80320; 81001; 84484; 85025; 87077; 87088; 87186; 93005; 99285; A4353

== ENCOUNTER 2022-11-01 20:12 | Inpatient (IN) | payer BC, MEDICAID ==
[~2022-11-01] VITALS: Ht 162.6 cm; Wt 93.2 kg
[~2022-11-01 20:12] MED LIST changes: -LOSA100T57 PO; +LOSA100T58 PO
[2022-11-01 21:16] LABS: BASOPHILS # (AUTO) 0.1 X10'3 (0-0.2); BASOPHILS % (AUTO) 0.9 % (0-1); EOSINOPHILS # (AUTO) 0.2 X10'3 (0-0.9); EOSINOPHILS % (AUTO) 2.5 % (0-6); HEMATOCRIT 36.7 % (35.0-45.0); HEMOGLOBIN 12.4 g/dl (12.0-16.0); LYMPHOCYTES # (AUTO) 2.2 X10'3 (1.1-4.8); LYMPHOCYTES % (AUTO) 28.7 % (21-51); MEAN CORPUSCULAR HEMOGLOBIN 30.5 PG (27.0-31.0); MEAN CORPUSCULAR HGB CONC 33.7 g/dL (33.0-36.5); MEAN CORPUSCULAR VOLUME 90.6 FL (78-98); MEAN PLATELET VOLUME 7.6 FL (7.4-10.4); MONOCYTES # (AUTO) 0.5 X10'3 (0-0.9); MONOCYTES % (AUTO) 6.4 % (2-12); NEUTROPHILS # (AUTO) 4.6 X10'3 (1.8-7.7); NEUTROPHILS % (AUTO) 61.5 % (42-75); PLATELET COUNT 249 X10'3 (140-440); RED BLOOD COUNT 4.05 X10'6 (4.20-5.60); RED CELL DISTRIBUTION WIDTH 13.6 % (11.5-14.5); WHITE BLOOD COUNT 7.5 X10'3 (4.5-11.0)
[2022-11-01 21:33] LABS: ALANINE AMINOTRANSFERASE 12 U/L (12-78); ALBUMIN 3.2 G/DL (3.4-5.0); ALBUMIN/GLOBULIN RATIO 0.8 (1.1-1.5); ALKALINE PHOSPHATASE 92 IU/L (46-116); ANION GAP 14 (8-16); ASPARTATE AMINO TRANSFERASE 17 U/L (10-37); BILIRUBIN,TOTAL 0.2 MG/DL (0.1-1.0); BLOOD UREA NITROGEN 45 MG/DL (7-18); CALCIUM 9.7 MG/DL (8.5-10.1); CHLORIDE 104 MMOL/L (99-107); CREATININE 1.45 MG/DL (0.40-0.90); GLUCOSE 135 MG/DL (70-104); SODIUM 141 MMOL/L (135-145); TOTAL CARBON DIOXIDE 23.5 MMOL/L (24-32); TOTAL PROTEIN 7.4 G/DL (6.4-8.2); eGFR 35 ML/MIN
[2022-11-01 21:45] LABS: POTASSIUM 3.9 MMOL/L (3.5-5.1)
[2022-11-01] MEDS ORDERED: normal saline 1000ML IV soln IVB ONE (23:05)
[2022-11-01] MEDS ORDERED: ondansetron/PF 4mg/2ml inj IV ONE (23:05)
[2022-11-01] MEDS: morphine 2 MG/ML inj. syringe IV PRN (23:27)
[2022-11-02 00:31] LABS: CLARITY,URINE SLIGHTLY CLOUDY (Clear); COLOR,URINE YELLOW (Yellow); GLUCOSE, URINE NEGATIVE (Neg); KETONES,URINE NEGATIVE (Neg); LEUKOCYTE ESTERASE ,URINE TRACE (Neg); NITRITES, URINE POSITIVE (Neg); OCCULT BLOOD,URINE TRACE-INTACT (Neg); PROTEIN,URINE TRACE mg/dl (Neg); UROBILINOGEN,URINE 0.2 E.U/dL (0.2-1.0)
[2022-11-02 00:35] LABS: UA COLLECTION TYPE STRAIGHT CATH
[2022-11-02 00:47] LABS: WBC,URINE 20-30 /HPF (0-4)
[2022-11-02 00:48] LABS: BACTERIA,URINE 4+ /HPF (Neg); RBC,URINE NONE SEEN /HPF (0-2); SQUAMOUS EPITHELIAL CELL,UR FEW /LPF (FEW)
[2022-11-02 00:49] LABS: MUCUS STRANDS NONE SEEN /LPF (Neg); WBC CLUMPS,URINE MODERATE /HPF (NEGATIVE)
[2022-11-02] MEDS: morphine 2 MG/ML inj. syringe IV PRN ×3 (00:52→06:09)
[2022-11-02] MEDS ORDERED: CefTRIAXone/D5W-Rocephin 1gm 50 ML IV ONE (01:25)
[2022-11-02] MEDS ORDERED: glucagon, human recombinant 1mg kit SUBCUT PRN (01:45)
[2022-11-02] MEDS ORDERED: mag hydrox/Alum hydrox/simeth 30ml oral suspension PO PRN (01:45)
[2022-11-02] MEDS ORDERED: insulin Lispro (HumaLOG) vial - multi-dose SQ SCH (01:45)
[2022-11-02] MEDS ORDERED: HYDROcodone/acetaminophen 5mg/325mg tablet PO PRN (01:45)
[2022-11-02] MEDS ORDERED: ondansetron/PF 4mg/2ml inj IV PRN (01:45)
[2022-11-02] MEDS ORDERED: dextrose 50%-water 50ml dispensing syringe IV PRN ×2 (01:45)
[2022-11-02] MEDS ORDERED: MESSAGE TO PHARMACY PO ONE (01:45)
[2022-11-02] MEDS ORDERED: acetaminophen 325mg tablet PO PRN ×2 (01:45)
[2022-11-02] MEDS ORDERED: morphine 2 MG/ML inj. syringe IV PRN ×2 (01:45)
[2022-11-02] MEDS: normal saline 1000ml 1,000 ML IV SCH ×2 (01:45→11:45)
[2022-11-02] MEDS ORDERED: DEXTROSE 15 GM of carb/4 tabs (each vial/BOTTLE has 4 tablets) PO PRN ×2 (01:45)
[2022-11-02] MEDS ORDERED: magnesium hydroxide 30ml (MOM) UD suspension PO PRN (01:45)
[2022-11-02 02:06] LABS: HEMOGLOBIN A1C 6.3 % (4.5-6.2)
[2022-11-02] MEDS ORDERED: NYST15OI14 TOP (02:13)
[2022-11-02] MEDS ORDERED: HYDR28CR14 TOP (02:13)
[2022-11-02 06:57] VITALS: BP 147/63; PULSE 66; RESP 18; TEMP 98.3; O2SAT 91
[2022-11-02] MEDS ORDERED: enoxaparin 40mg/0.4ml syringe SUBCUT SCH (08:00)
[2022-11-02] MEDS: CefTRIAXone/D5W-Rocephin 1gm 50 ML IV SCH (08:06)
[2022-11-02] MEDS: HYDROcodone/acetaminophen 10/325mg tab PO PRN ×2 (08:37→17:16)
[2022-11-02] MEDS: sennosides 8.6mg tablet PO SCH (08:37)
[2022-11-02] MEDS: ESCITALOPRAM OXALATE 5 MG TABLET PO SCH (08:38)
[2022-11-02] MEDS: oxybutynin 5mg tablet PO SCH ×3 (08:38→20:23)
[2022-11-02] MEDS: HYDROchlorothiazide 25mg tablet PO SCH (08:38)
[2022-11-02] MEDS: docusate sod 100mg capsule PO SCH ×2 (08:38→20:00)
[2022-11-02] MEDS: losartan 50mg tablet PO SCH (08:39)
[2022-11-02 10:00] VITALS: BP 125/62; PULSE 63; RESP 18; TEMP 97.9; O2SAT 91
--- NOTE | 2022-11-02 10:56 | NUR ---
Pt with a low Misha of 12. Per EMR pt with no edema though redness/excoriation to abdomen folds and aleksandra area. Wound care has been consulted, assessment pending at this time. Per EMR pt with T2DM, well controlled with A1c 6.3%. DM education not warranted at this time. Will continue to follow and make recommendations as appropriate pending [facility] assessment and trends in PO intake. Addendum: 11/02/22 at [address] Amended: Links added.
[2022-11-02 18:00] VITALS: BP 148/41; PULSE 50; RESP 16; TEMP 98.9; O2SAT 94
--- NOTE | 2022-11-02 18:00 | NUR ---
I have reviewed and agree with the interventions, assessments, and documentation by Franklin Garcia LVN.
--- NOTE | 2022-11-02 18:29 | NUR ---
Problems reprioritized. Patient report given, questions answered & plan of care reviewed with MERY Fuchs.
[2022-11-02 20:00] VITALS: RESP 18; O2SAT 94
[2022-11-02 20:20] VITALS: BP 154/58; PULSE 51
[2022-11-02 20:21] VITALS: BP 154/58; PULSE 51; RESP 18; TEMP 98; O2SAT 96
[2022-11-02] MEDS ORDERED: insulin glargine (Lantus) pen - multi-dose SQ SCH (21:00)
[2022-11-03] MEDS: normal saline 1000ml 1,000 ML IV SCH ×2 (00:38→07:45)
[2022-11-03 06:00] VITALS: BP 127/47; PULSE 54; RESP 15; TEMP 97.9; O2SAT 94
[2022-11-03 06:07] LABS: ALBUMIN 2.5 G/DL (3.4-5.0); ANION GAP 6 (8-16); BLOOD UREA NITROGEN 37 MG/DL (7-18); BUN/CREATININE RATIO 27.4 (10.0-20.0); CALCIUM 8.6 MG/DL (8.5-10.1); CHLORIDE 108 MMOL/L (99-107); CREATININE 1.35 MG/DL (0.40-0.90); GLUCOSE 144 MG/DL (70-104); POTASSIUM 3.8 MMOL/L (3.5-5.1); SODIUM 141 MMOL/L (135-145); TOTAL CARBON DIOXIDE 26.6 MMOL/L (24-32); eGFR 38 ML/MIN
--- NOTE | 2022-11-03 06:15 | NUR ---
Patient in room ORTHO 4009. I have received report from MERY Fuchs and had the opportunity to ask questions and assume patient care.
[2022-11-03 06:20] LABS: BASOPHILS # (AUTO) 0.1 X10'3 (0-0.2); EOSINOPHILS # (AUTO) 0.2 X10'3 (0-0.9); EOSINOPHILS % (AUTO) 3.5 % (0-6); HEMATOCRIT 32.8 % (35.0-45.0); LYMPHOCYTES # (AUTO) 2.2 X10'3 (1.1-4.8); LYMPHOCYTES % (AUTO) 35.9 % (21-51); MEAN CORPUSCULAR HEMOGLOBIN 30.9 PG (27.0-31.0); MEAN CORPUSCULAR HGB CONC 33.6 g/dL (33.0-36.5); MEAN CORPUSCULAR VOLUME 92.1 FL (78-98); MEAN PLATELET VOLUME 7.5 FL (7.4-10.4); MONOCYTES # (AUTO) 0.5 X10'3 (0-0.9); MONOCYTES % (AUTO) 7.6 % (2-12); NEUTROPHILS # (AUTO) 3.1 X10'3 (1.8-7.7); PLATELET COUNT 194 X10'3 (140-440); RED BLOOD COUNT 3.56 X10'6 (4.20-5.60); RED CELL DISTRIBUTION WIDTH 13.5 % (11.5-14.5)
[2022-11-03] MEDS: ESCITALOPRAM OXALATE 5 MG TABLET PO SCH (07:09)
[2022-11-03] MEDS: oxybutynin 5mg tablet PO SCH ×2 (07:09→12:46)
[2022-11-03] MEDS: HYDROchlorothiazide 25mg tablet PO SCH (07:09)
[2022-11-03] MEDS: sennosides 8.6mg tablet PO SCH (07:09)
[2022-11-03] MEDS: docusate sod 100mg capsule PO SCH (07:09)
[2022-11-03] MEDS: HYDROcodone/acetaminophen 10/325mg tab PO PRN ×2 (07:09→16:00)
[2022-11-03] MEDS: losartan 50mg tablet PO SCH (07:11)
[2022-11-03 08:00] VITALS: RESP 15; O2SAT 94
[2022-11-03] MEDS ORDERED: enoxaparin 30mg/0.3ml syringe SUBCUT SCH (08:00)
[2022-11-03] MEDS: CefTRIAXone/D5W-Rocephin 1gm 50 ML IV SCH (08:02)
[2022-11-03 10:00] VITALS: BP 143/44; PULSE 56; RESP 18; TEMP 98.5; O2SAT 96
[2022-11-03] MEDS ORDERED: HYDR-3964 PO (10:58)
[2022-11-03] MEDS ORDERED: CEPH500C2 PO (10:58)
--- NOTE | 2022-11-03 13:00 | NUR ---
I have reviewed and agree with interventions, assessments, and documentation by Franklin Garcia LVN.
[2022-11-03 16:00] VITALS: RESP 18
--- NOTE | 2022-11-03 17:35 | NUR ---
Pt stable for discharge. IV discontinued prior to discharge. Pt signed all discharge paperwork. Caregiver Alexa was present at the time of discharge and went over all discharge paperwork with caregiver and patient. Patient left with all belongings. patient was wheeled out of facility with the help of one staff member and left in a private vehicle with caregiver to go home.
[2022-11-03] MEDS ORDERED: nystatin 15 GM powder TP SCH (20:00)
== END 2022-11-03 16:10 | disposition home health service (06) | DRG 689 ==
LOC: ER 20:12 → ED HOLD 11-02 01:50 → EDBEDREQ 11-02 03:54 → ORTHO 4S 11-02 06:55
PROVIDERS: ADMIT Internal Medicine; ATTEND Family Medicine
DX: N30.00 Acute cystitis without hematuria (principal); N17.0 Acute kidney failure with tubular necrosis; E11.22 Type 2 diabetes mellitus with diabetic chronic kidney disease; E78.00 Pure hypercholesterolemia, unspecified; I12.9 Hypertensive chronic kidney disease with stage 1 through stage 4 chronic kidney disease, or unspecified chronic kidney disease; Z96.651 Presence of right artificial knee joint; F32.A Depression, unspecified; S00.81XA Abrasion of other part of head, initial encounter; Z60.2 Problems related to living alone; W18.39XA Other fall on same level, initial encounter; G89.29 Other chronic pain; G47.30 Sleep apnea, unspecified; R29.6 Repeated falls; R26.9 Unspecified abnormalities of gait and mobility; N18.30 Chronic kidney disease, stage 3 unspecified; K21.9 Gastro-esophageal reflux disease without esophagitis; M25.511 Pain in right shoulder; J44.9 Chronic obstructive pulmonary disease, unspecified; Z87.442 Personal history of urinary calculi; Z90.710 Acquired absence of both cervix and uterus; Z88.8 Allergy status to other drugs, medicaments and biological substances; Z86.73 Personal history of transient ischemic attack (TIA), and cerebral infarction without residual deficits; Y93.89 Activity, other specified; Y99.8 Other external cause status; Y92.009 Unspecified place in unspecified non-institutional (private) residence as the place of occurrence of the external cause; Z79.899 Other long term (current) drug therapy; Z79.4 Long term (current) use of insulin
CPT/HCPCS: 36415; 71045; 73030; 73502; 73564; 80048; 80053; 81001; 82948; 83036; 83880; 84484; 85025; 87077; 87081; 87088; 87186; 97116; 97161; 97530; 99285; A4565; G0378; J0696; J1650; J1815; J2270; J2405; J7030

== ENCOUNTER 2023-06-06 15:36 | Emergency (ER) | payer BC, MEDICAID ==
[~2023-06-06] VITALS: Ht 162.6 cm; Wt 100.0 kg
[~2023-06-06 15:36] MED LIST changes: +ALBU8HFA PO; -ASPI-1265 PO; -GABA300C PO; +HYDR-3964 PO; +HYDR28CR14 TOP; +LACT1CAP26 PO; +NYST15OI14 TOP
[2023-06-06 16:05] VITALS: TEMP 98.4
[2023-06-06 16:32] LABS: BASOPHILS # (AUTO) 0.1 X10'3 (0-0.2); BASOPHILS % (AUTO) 0.8 % (0-1); EOSINOPHILS # (AUTO) 0.2 X10'3 (0-0.9); EOSINOPHILS % (AUTO) 2.8 % (0-6); HEMATOCRIT 35.6 % (35.0-45.0); HEMOGLOBIN 11.8 g/dl (12.0-16.0); LYMPHOCYTES % (AUTO) 30.4 % (21-51); MEAN CORPUSCULAR HEMOGLOBIN 30.8 PG (27.0-31.0); MEAN CORPUSCULAR HGB CONC 33.2 g/dL (33.0-36.5); MEAN CORPUSCULAR VOLUME 92.9 FL (78-98); MEAN PLATELET VOLUME 7.7 FL (7.4-10.4); MONOCYTES # (AUTO) 0.5 X10'3 (0-0.9); MONOCYTES % (AUTO) 7.1 % (2-12); NEUTROPHILS # (AUTO) 3.8 X10'3 (1.8-7.7); NEUTROPHILS % (AUTO) 58.9 % (42-75); PLATELET COUNT 193 X10'3 (140-440); RED BLOOD COUNT 3.83 X10'6 (4.20-5.60); RED CELL DISTRIBUTION WIDTH 13.7 % (11.5-14.5); WHITE BLOOD COUNT 6.5 X10'3 (4.5-11.0)
[2023-06-06] MEDS ORDERED: ONDA4TAB12 PO (16:35)
[2023-06-06] MEDS ORDERED: DICY20TA17 PO (16:35)
[2023-06-06 16:56] LABS: ALBUMIN 2.9 G/DL (3.4-5.0); ANION GAP 6 (8-16); BLOOD UREA NITROGEN 25 MG/DL (7-18); BUN/CREATININE RATIO 19.4 (10.0-20.0); CALCIUM 8.8 MG/DL (8.5-10.1); CHLORIDE 106 MMOL/L (99-107); CREATININE 1.29 MG/DL (0.40-0.90); GLUCOSE 147 MG/DL (70-104); POTASSIUM 3.9 MMOL/L (3.5-5.1); PRO BRAIN NATRIURETIC PEPTIDE 425 PG/ML (0-450); SODIUM 143 MMOL/L (135-145); TOTAL CARBON DIOXIDE 30.9 MMOL/L (24-32); eCRCL 30 ML/MIN; eGFR 40 ML/MIN
[2023-06-06 18:49] VITALS: BP 144/72; PULSE 64; RESP 16; O2SAT 95
== END 2023-06-06 18:51 | disposition home or self-care (01) ==
LOC: ER 15:37
DX: I10 Essential (primary) hypertension (principal); R10.9 Unspecified abdominal pain; E78.00 Pure hypercholesterolemia, unspecified; J44.9 Chronic obstructive pulmonary disease, unspecified; K21.9 Gastro-esophageal reflux disease without esophagitis; E11.9 Type 2 diabetes mellitus without complications; M19.90 Unspecified osteoarthritis, unspecified site; Z88.8 Allergy status to other drugs, medicaments and biological substances; Z79.2 Long term (current) use of antibiotics; Z79.899 Other long term (current) drug therapy; Z79.84 Long term (current) use of oral hypoglycemic drugs
CPT/HCPCS: 36415; 71045; 80048; 83880; 84484; 85025; 93005; 99285

== ENCOUNTER 2023-08-01 12:02 | Outpatient (CLI) | payer BC, MEDICAID ==
[~2023-08-01 12:02] MED LIST changes: -ALBU8HFA PO; +DICY20TA17 PO; -NYST15OI14 TOP; +NYST15OI4 TOP; +ONDA4TAB12 PO
== END 2023-08-01 23:59 | disposition home or self-care (01) ==
LOC: LAB 12:02
PROVIDERS: ATTEND Student in an Organized Health Care Education/Training Program
DX: M16.0 Bilateral primary osteoarthritis of hip (principal); M25.551 Pain in right hip
CPT/HCPCS: 73502